=== PATIENT | male | born 1950 | race Caucasian/White ===

== ENCOUNTER 2024-06-11 11:54 | Emergency (ER) | payer MEDICARE ==
[2024-06-11] MEDS ORDERED: Sodium Chloride 0.9% 10 ML Syringe FLUSH PRN (11:56)
[2024-06-11 12:16] LABS: BASE EXCESS VENOUS -9.1 mm/L; BICARBONATE,VENOUS 13.5 mmol/L; METHEMOGLOBIN 0.6 %; OXYHEMOGLOBIN 91.6 %; PCO2 VENOUS 23.1 mm/Hg; PH,VENOUS 7.384 (7.350-7.450); PO2 VENOUS 75.8 mm/Hg; TOTAL HEMOGLOBIN 18.3 g/dL (13.5-18.0)
[2024-06-11 12:16] LABS: BASOPHILS ABSOLUTE AUTO 0.11 K/uL (0.00-0.10); BASOPHILS PERCENT AUTO 0.3 % (0.1-1.3); HEMATOCRIT 48.7 % (38.4-49.7); HEMOGLOBIN 17.8 g/dL (12.9-16.9); IMMATURE GRAN ABSOLUTE AUTO 0.51 K/uL (0.00-0.23); IMMATURE GRAN PERCENT AUTO 1.3 % (0.0-0.7); LYMPHOCYTES ABSOLUTE AUTO 0.85 K/uL (0.8-3.3); LYMPHOCYTES PERCENT AUTO 2.2 % (11.4-47.7); MEAN CORPUSCULAR HEMOGLOBIN 32.5 pg (31.6-35.5); MEAN CORPUSCULAR HGB CONC 36.6 g/dL (31.6-35.5); MEAN CORPUSCULAR VOLUME 88.9 fL (81.4-99.0); MONOCYTES ABSOLUTE AUTO 1.61 K/uL (0.20-0.90); MONOCYTES PERCENT AUTO 4.2 % (3.3-12.6); NEUTROPHILS ABSOLUTE AUTO 35.33 K/uL (1.0-7.6); PLATELET COUNT,PLT 102 K/uL (130-375); RED BLOOD CELL COUNT 5.48 M/uL (4.14-5.76)
[2024-06-11] MEDS: Sodium Chloride 0.9% 1,000 ML IV ONE ×3 (12:19→14:40)
[2024-06-11 12:28] LABS: WHITE BLOOD CELL COUNT,WBC 38.4 K/uL (3.2-11.0)
[2024-06-11 12:36] LABS: A/G RATIO 0.5 (1.2-2.2); ALANINE AMINOTRANSFERASE,ALT 44 U/L (12-78); ALBUMIN 2.2 g/dL (3.4-5.0); ALKALINE PHOSPHATASE 270 U/L (46-116); ASPARTATE AMNIOTRANSFERASE,AST 30 U/L (15-37); BILIRUBIN TOTAL 1.8 mg/dL (0.2-1.0); CHLORIDE,CL 93 mmol/L (100-108); ESTIMATED GFR 4 mL/min (>60); GLUCOSE RANDOM 124 mg/dL (74-106); PROTEIN TOTAL,TP 6.6 g/dL (6.4-8.2); SODIUM,NA 128 mmol/L (140-148)
[2024-06-11 12:44] LABS: LACTIC ACID 1.8 mmol/L (0.4-2.0)
[2024-06-11 12:56] LABS: ANION GAP 26.5 mmol/L (5.0-14.0); CARBON DIOXIDE,CO2 15 mmol/L (21-32); POTASSIUM,K 6.5 mmol/L (3.6-5.2)
[2024-06-11 12:57] LABS: BLOOD UREA NITROGEN,BUN 186 mg/dL (7-18); C-REACTIVE PROTEIN 27.67 mg/dL (<0.50); CALCIUM 12.4 mg/dL (8.5-10.1); CREATININE 13.1 mg/dL (0.8-1.3)
[2024-06-11 13:03] LABS: APPEARANCE,URINE SLIGHTLY CLOUDY (CLEAR); BILIRUBIN,URINE SMALL (NEGATIVE); COLOR,URINE BROWN (YELLOW); GLUCOSE,URINE NEGATIVE (NEGATIVE); KETONES,URINE NEGATIVE (NEGATIVE); LEUKOCYTE ESTERASE,URINE TRACE (NEGATIVE); NITRITE,URINE POSITIVE (NEGATIVE); OCCULT BLOOD,URINE LARGE (NEGATIVE); PROTEIN,URINE >=300 mg/dL (NEGATIVE); UROBILINOGEN,URINE 0.2 EU/dL (0.2-1.0)
[2024-06-11 13:10] LABS: AMORPHOUS SEDIMENT,URINE NOT SEEN; BACTERIA,URINE MODERATE; EPITHELIAL CELLS,URINE FEW; MUCUS,URINE NOT SEEN; RBC,URINE >100 (0-5)
[2024-06-11] MEDS: Piperacillin/Tazobactam 4.5 GM in Sodium Chloride 0.9% 100 ML IV ONE (13:25)
[2024-06-11] MEDS ORDERED: 50% Dextrose in Water 50 ML Syringe IVPUSH PRN (13:26)
[2024-06-11] MEDS ORDERED: Glucagon,Human Recombinant 1 MG Vial IM PRN (13:26)
[2024-06-11] MEDS ORDERED: fentaNYL 100 MCG/2 ML SDV ONE (14:04)
[2024-06-11] MEDS ORDERED: Propofol 200 MG/20 ML SDV ONE (14:05)
[2024-06-11] MEDS: propofoL 1,000 MG/100 ML 100 ML IV SCH (14:06)
[2024-06-11] MEDS: fentaNYL 100 MCG/2 ML SDV IVPUSH ONE (14:10)
[2024-06-11] MEDS: Insulin Regular, Human 100 Units/ML 10 ML Vial IVPUSH ONE (14:15)
[2024-06-11] MEDS: 50% Dextrose in Water 50 ML Syringe IVPUSH ONE (14:20)
[2024-06-11] MEDS: Albuterol 0.083% 2.5 MG/3 ML Neb Soln NEB ONE ×2 (14:26→14:42)
[2024-06-11] MEDS: Rocuronium 50 MG/5 ML Vial ONE (14:31)
[2024-06-11] MEDS ORDERED: fentaNYL 100 MCG/2 ML SDV IVPUSH PRN (14:44)
[2024-06-11] MEDS: VANCOmycin 1.75 GM in Sodium Chloride 0.9% 250 ML IV ONE (15:15)
[2024-06-11 15:23] LABS: CALCIUM 11.2 mg/dL (8.5-10.1); EST CRCL DRUG DOSING (CG) 5.26 mL/min
[2024-06-11 15:36] LABS: ANION GAP 19.5 mmol/L (5.0-14.0)
[2024-06-11 15:38] LABS: CREATININE 12.7 mg/dL (0.8-1.3); POTASSIUM,K 6.5 mmol/L (3.6-5.2)
== END 2024-06-11 15:35 ==
LOC: JP.ED 11:54
DX: N19 Unspecified kidney failure (principal); R41.82 Altered mental status, unspecified; D69.6 Thrombocytopenia, unspecified; M79.89 Other specified soft tissue disorders; Z79.82 Long term (current) use of aspirin; Z79.899 Other long term (current) drug therapy
CPT/HCPCS: 31500; 36415; 71045; 80048; 80053; 81001; 82803; 83605; 84484; 85025; 86140; 87040; 87086; 93005; 93010; 93971; 94640; 96361; 96365; 96375; 99285; 99291; 99292; A9270; C1758; J2543; J2704; J3010; J7030

== ENCOUNTER 2024-06-15 16:09 | Inpatient (IN) | payer MEDICARE ==
[2024-06-15] MEDS ORDERED: oxyCODONE 5 MG Tab PO PRN (16:26)
[2024-06-15] MEDS ORDERED: Polyethylene Glycol 3350 Powder 17 GM Packet PO PRN (16:26)
[2024-06-15] MEDS ORDERED: Sodium Chloride 0.9% 10 ML Syringe FLUSH PRN (16:26)
[2024-06-15] MEDS ORDERED: Albuterol 0.083% 2.5 MG/3 ML Neb Soln NEB PRN (16:26)
[2024-06-15] MEDS ORDERED: Ondansetron 4 MG Tab.DIS PO PRN (16:26)
[2024-06-15] MEDS ORDERED: Acetaminophen 325 MG Tab PO PRN (16:26)
[2024-06-15] MEDS ORDERED: HYDROmorphone 1 MG/ML Syringe IVPUSH PRN (16:30)
[2024-06-15] MEDS ORDERED: Albuterol/Ipratropium 3.0-0.5 MG/3 ML Neb Soln INH PRN (17:32)
[2024-06-15] MEDS ORDERED: Acetaminophen 650 MG Supp RECTAL PRN (17:32)
[2024-06-15] MEDS ORDERED: Haloperidol Lactate 5 MG/ML SDV IV PRN (17:32)
[2024-06-15] MEDS ORDERED: LORazepam ORAL Concentrate 1MG/0.5ML U/D SL PRN (17:36)
[2024-06-15] MEDS: HYDROmorphone 1 MG/ML Syringe IVPUSH PRN (18:36)
[2024-06-16] MEDS ORDERED: Morphine 10 MG/0.5 ML Oral Syringe PO PRN (10:34)
[2024-06-16] MEDS: Haloperidol Lactate 2 MG/ML Oral Soln 15 ML Bottle SL PRN (12:56)
== END 2024-06-17 05:55 | disposition expired | DRG 951 ==
LOC: JP.MS 16:09
PROVIDERS: ADMIT Hospitalist; ATTEND Hospitalist
DX: Z51.5 Encounter for palliative care (principal); I26.94 Multiple subsegmental thrombotic pulmonary emboli without acute cor pulmonale; I80.203 Phlebitis and thrombophlebitis of unspecified deep vessels of lower extremities, bilateral; Z66 Do not resuscitate; N18.30 Chronic kidney disease, stage 3 unspecified; R41.82 Altered mental status, unspecified; C67.9 Malignant neoplasm of bladder, unspecified; Z79.899 Other long term (current) drug therapy; Z79.51 Long term (current) use of inhaled steroids
CPT/HCPCS: 99306; 99315; A9270-GY; J1171